=== PATIENT | male | born 1990 | race Caucasian/White ===

== ENCOUNTER 2017-09-01 21:58 | Emergency (ER) | payer MEDICAID ==
[2017-09-01 22:16] VITALS: BP 123/68
--- NOTE | 2017-09-01 22:22 | EDM.PDOC ---
ED HPI GENERAL MEDICAL PROBLEM - General Chief Complaint: Skin Complaint Stated Complaint: RASH ALL OVER Time Seen by Provider: 09/01/17 22:05 Source of Information: Reports: Patient History Limitations: Reports: No Limitations - History of Present Illness INITIAL COMMENTS - FREE TEXT/NARRATIVE: 27 yo male here with ? poison joann over much of his body. Is very itchy. Onset: Today Onset Date: 09/01/17 Duration: Hour(s):, Getting Worse Location: Reports: Generalized Quality: Reports: Other (itchy) Severity: Moderate Improves with: Reports: None Worsens with: Reports: Other (time) Context: Reports: Other (exposed to poison joann) Associated Symptoms: Reports: No Other Symptoms Treatments WEIGHTER: Reports: Other (see below) (none) - Related Data Allergies Allergy/AdvReac Type Severity Reaction Status Date / Time No Known Allergies Allergy Verified 09/01/17 22:05 Home Meds: Home Meds NK [No Known Home Meds] 09/01/17 [History] Past Medical History HEENT History: Reports: Other (See Below) Other HEENT History: laceration chin Dermatologic History: Reports: Other (See Below) Other Dermatologic History: laceration chin ED ROS GENERAL - Review of Systems Review Of Systems: See Below Constitutional: Reports: No Symptoms HEENT: Reports: No Symptoms Respiratory: Reports: No Symptoms Cardiovascular: Reports: No Symptoms GI/Abdominal: Reports: No Symptoms : Reports: No Symptoms Musculoskeletal: Reports: No Symptoms Skin: Reports: Pruritis, Rash Neurological: Reports: No Symptoms ED EXAM, SKIN/RASH Exam: See Below Exam Limited By: No Limitations General Appearance: Alert, WD/WN, No Apparent Distress Eye Exam: Bilateral Eye: Normal Inspection Ears: Normal External Exam, Normal Canal, Hearing Grossly Normal, Normal TMs Nose: Normal Inspection, Normal Mucosa Throat/Mouth: Normal Inspection, Normal Lips, Normal Oropharynx, Normal Voice, No Airway Compromise Head: Atraumatic, Normocephalic Neck: Normal Inspection Respiratory/Chest: No Respiratory Distress, Normal Breath Sounds, No Accessory Muscle Use Cardiovascular: Regular Rate, Rhythm Neurological: Alert, Oriented, CN II-XII Intact, Normal Cognition, No Motor/ Sensory Deficits Psychiatric: Normal Affect, Normal Mood Skin: Warm, Dry, Intact, Rash Location, Skin: Generalized Characteristics: Maculopapular, Vesicular, Erythematous Associated features: Induration, Inflammation, Weeping Course - Vital Signs Last Recorded V/S: Last Vital Signs Temp 36.0 C 09/01/17 22:09 Pulse 63 09/01/17 22:09 Resp 14 09/01/17 22:09 BP 123/68 09/01/17 22:09 Pulse Ox 96 09/01/17 22:09 Departure - Departure Time of Disposition: 22:22 Disposition: Home, Self-Care 01 Condition: Good Clinical Impression: Contact dermatitis Qualifiers: Contact dermatitis type: allergic Contact dermatitis trigger: non-food plants Qualified Code(s): L23.7 - Allergic contact dermatitis due to plants, except food - Discharge Information Referrals: PCP,None [Primary Care Provider] -
== END 2017-09-01 22:34 | disposition home or self-care (01) ==
LOC: JP.ED 21:58
DX: L23.7 Allergic contact dermatitis due to plants, except food (principal)
CPT/HCPCS: 99283

== ENCOUNTER 2018-08-27 06:51 | Day surgery (SDC) | payer MEDICAID ==
[2018-08-27] MEDS ORDERED: Propofol 200 MG/20 ML SDV ONE (07:24)
[2018-08-27] MEDS ORDERED: fentaNYL 100 MCG/2 ML SDV ONE ×2 (07:24→09:32)
[2018-08-27] MEDS ORDERED: Midazolam 1 MG/ML 2 ML SDV ONE (07:24)
[2018-08-27] MEDS ORDERED: Dexamethasone 4 MG/ML SDV ONE (07:24)
[2018-08-27] MEDS ORDERED: Ondansetron 4 MG/2 ML SDV ONE (07:24)
[2018-08-27] MEDS: Lactated Ringers 1,000 ML IV SCH (07:28)
[2018-08-27] MEDS: Nozin Nasal Sanitizer NASBOTH ONE (07:29)
[2018-08-27] MEDS ORDERED: ceFAZolin 1 GM Vial ONE (08:49)
[2018-08-27] MEDS: Bupivacaine 0.25% 10 ML SDV ONE (09:18)
[2018-08-27] MEDS ORDERED: Lactated Ringers 1,000 ML ONE (09:39)
[2018-08-27] MEDS: Morphine 2 MG/ML Syringe IVPUSH ONE (10:03)
[2018-08-27] MEDS ORDERED: Ketorolac 30 MG/ML SDV IVPUSH ONE (10:29)
[2018-08-27] MEDS ORDERED: Ketorolac 30 MG/ML SDV ONE (10:34)
[2018-08-27] MEDS: Acetaminophen/oxyCODONE 325-5 MG Tab PO PRN (11:16)
[2018-08-27 11:51] VITALS: BP 94/60
--- NOTE | 2018-08-27 14:46 | OR ---
DATE OF PROCEDURE: 08/27/2018 PREOPERATIVE DIAGNOSES: Ganglion cyst, left knee, possible meniscus tear. POSTOPERATIVE DIAGNOSES: 1. Ganglion cyst, left knee. 2. Meniscal capsular separation, medial meniscus. 3. Hypermobile lateral meniscus with small posterior horn root tear. 4. Chondromalacia femoral trochlea. PROCEDURES: 1. Arthroscopy of left knee, decompression of ganglion cyst. 2. Repair of medial meniscus. 3. Repair of lateral meniscus. 4. Minor chondroplasty, trochlear groove. ANESTHESIA: General. INDICATIONS: Aguila is a 28-year-old male who has had difficulty with his left knee for the past several years. He initially sustained an injury to the knee while serving in the . This was a hyperextension-type injury. He has had difficulty with it since that time. Symptoms have been worse recently with intermittent locking and popping. He has had a couple of episodes of locking with inability to bear weight, which can take several hours to resolve. Examination reveals no significant instability of the ACL or PCL. MRI shows a small ganglion cyst in the posteromedial aspect of the knee with no definitive meniscus tears. He now presents for decompression of the popliteal cyst and evaluation of meniscus for possible tear as well as possibility of a loose cartilaginous body or articular cartilage flap causing the locking. Risks, benefits, and potential complications of the procedure were discussed, and he agrees to proceed. DESCRIPTION OF PROCEDURE: After adequate anesthesia was obtained, the patient was placed supine with a tourniquet about the left upper thigh. Left leg was prepped and draped in a sterile fashion. Leg was exsanguinated and tourniquet inflated to 300 mmHg. Examination under anesthesia revealed no significant laxity on Bushra's, anterior or posterior drawer, and negative pivot shift. Standard anterior medial and lateral portals were established. The scope was introduced. The patellofemoral joint was inspected. This revealed intact articular cartilage on the patella. A small fissure was present in the trochlear groove in its base with grade 2 and early grade 3 changes. Medial compartment revealed no articular cartilage damage. Initial observation of the medial meniscus showed no obvious irregularities. The probe was then introduced and it showed attachment on the dorsal surface; however, the tibial articular surface showed a rent along the posterior portion from the junction of the midbody to the posterior horn. This allowed the meniscus to slide beneath the medial femoral condyle. It was consistent with meniscal capsular separation with partial healing on the superior surface. It was felt that this was mobile enough to potentially cause entrapment and pain. Further inspection revealed anterior and posterior cruciate ligaments to be intact within the notch. Lateral compartment revealed intact articular cartilage in the femoral condyle and tibial plateau. The lateral meniscus showed some fraying at the attachment of the posterior root with a very large popliteal hiatus and thin connection in the posterior horn over to the meniscal root resulting in hypermobile lateral meniscus, which could be significantly displaced into the joint and under the femoral condyle. Due to the intraoperative findings, it was thought that the lateral meniscus was most likely the source of the popping and locking as it could be displaced beneath the femoral condyle with significant distance. There was also the possibility that the mobility of the medial meniscus would cause pain and the possibility of further catching and fraying of the meniscus. Decision was made to proceed with repair of both menisci. Attention was turned to the medial compartment first, where the hook probe and shaver were used to roughen the undersurface of the meniscocapsular junction leaving the superior surface intact. Two Mitek meniscal anchors were then utilized placing horizontal mattress sutures. These were tightened, pulling the meniscus back against the capsule. This was then probed and was found to be quite stable. During placement of 1 of the anchors, the anchor misfired and was removed, and then replaced. Attention was then turned to the lateral compartment. The scope was initially placed through the medial portal and working through the lateral portal. Shaver was used to debride the frayed portion of the meniscal root and slightly roughen the junction of the posterior horn of the meniscus to the capsule. A Mitek anchor was then placed at this location and tied down against the capsule. This provided excellent stability of this portion of the meniscus. The remainder was probed and found to still be somewhat mobile more peripherally and decision was made to place the second anchor on the other side of the popliteal hiatus. Again, this area was roughened and a second anchor was then placed in horizontal mattress fashion. This was then tightened and cut. Probing again revealed very good stability of the meniscus. Shaver was used to lightly debride the trochlear groove removing the slight prominence along the edge of the fissure. No other abnormalities were identified. Knee was drained. Scope was withdrawn. Port sites were closed in a standard fashion and infiltrated with Marcaine. Sterile dressing was then applied. The patient was placed in a hinged knee brace locked, set to prevent more than 70 degrees of flexion. He tolerated the procedure well. There were no complications. Kvng Smiley MD /[id number] MTDD
== END 2018-08-27 12:48 | disposition home or self-care (01) ==
LOC: JP.SDS 06:51
PROVIDERS: ATTEND Specialist
DX: S83.282A Other tear of lateral meniscus, current injury, left knee, initial encounter (principal); S83.242A Other tear of medial meniscus, current injury, left knee, initial encounter; M67.462 Ganglion, left knee; X50.9XXA Other and unspecified overexertion or strenuous movements or postures, initial encounter
CPT/HCPCS: 29883; 36415; 80048; 85027; A9270; C1713; J0690; J1100; J2250; J2270; J2405; J2704; J3010; J3490; J7120

== ENCOUNTER 2018-12-13 23:41 | Emergency (ER) | payer MEDICAID ==
[2018-12-14 00:05] VITALS: BP 128/80; PULSE 62
--- NOTE | 2018-12-14 00:22 | EDM.PDOC ---
ED HPI GENERAL MEDICAL PROBLEM - General Chief Complaint: Bite:Animal, Insect Stated Complaint: WOOD TICK BITE Time Seen by Provider: 12/14/18 00:11 Source of Information: Reports: Patient, RN Notes Reviewed History Limitations: Reports: No Limitations - History of Present Illness INITIAL COMMENTS - FREE TEXT/NARRATIVE: 28-year-old gentleman presents emergency department today with a deer tick attached to his right shoulder, he found this yesterday - Related Data Allergies Allergy/AdvReac Type Severity Reaction Status Date / Time No Known Allergies Allergy Verified 12/14/18 00:04 Home Meds: Home Meds NK [No Known Home Meds] 12/11/18 [History] Past Medical History HEENT History: Reports: Other (See Below) Other HEENT History: laceration chin Cardiovascular History: Reports: None Respiratory History: Reports: None Gastrointestinal History: Reports: None Genitourinary History: Reports: None Musculoskeletal History: Reports: Other (See Below) Other Musculoskeletal History: L knee pain/bakers cyst and some pain in right pain Neurological History: Reports: Migraines Psychiatric History: Reports: None Endocrine/Metabolic History: Reports: None Hematologic History: Reports: None Immunologic History: Reports: None Oncologic (Cancer) History: Reports: None Dermatologic History: Reports: Other (See Below) Other Dermatologic History: laceration chin - Infectious Disease History Infectious Disease History: Reports: Chicken Pox, Shingles - Past Surgical History HEENT Surgical History: Reports: Oral Surgery Neurological Surgical History: Reports: None Musculoskeletal Surgical History: Reports: None, Arthroscopic Knee, Other (See Below) Other Musculoskeletal Surgeries/Procedures:: left knee scope 08/27/18 Dermatological Surgical History: Reports: None Social & Family History - Tobacco Use Smoking Status *Q: Never Smoker - Caffeine Use Caffeine Use: Reports: Coffee, Energy Drinks, Soda - Recreational Drug Use Recreational Drug Use: No ED ROS GENERAL - Review of Systems Review Of Systems: See Below Constitutional: Reports: No Symptoms Skin: Reports: Wound ED EXAM, ANIMAL BITE - Physical Exam Exam: See Below Text/Narrative:: Does have a wound about the size of a dime there is no erythema migrans present I did take a 15 blade and removed portion of the tick Exam Limited By: No Limitations General Appearance: Alert, WD/WN, No Apparent Distress Course - Vital Signs Last Recorded V/S: Last Vital Signs Temp 97.9 F 12/14/18 00:09 Pulse 62 12/14/18 00:09 Resp 16 12/14/18 00:09 BP 128/80 12/14/18 00:09 Pulse Ox 98 12/14/18 00:09 Departure - Departure Time of Disposition: 00:21 Disposition: Home, Self-Care 01 Condition: Fair Clinical Impression: Tick bite of right upper arm Qualifiers: Encounter type: initial encounter Qualified Code(s): S40.861A - Insect bite ( nonvenomous) of right upper arm, initial encounter; W57.XXXA - Bitten or stung by nonvenomous insect and other nonvenomous arthropods, initial encounter - Discharge Information Instructions: Tick Bite Information, Adult, Havz-at-Uhyr, Lyme Disease Referrals: PCP,None [Primary Care Provider] - Additional Instructions: Take doxycycline 200 mg times one, watch for signs and symptoms of tickborne illness, Please followup with your primary care provider in 3-5 days if not better, please call return to the emergency department with worsening of symptoms. - Assessment/Plan Plan: Assessment Acuity = acute Site and laterality = deer tick exposure Etiology = Ixodes scapularis Manifestations = none Location of injury = Home Lab values = none Plan Treated empirically doxycycline 200 mg 1 follow-up primary care as needed This note was dictated using [employer] voice recognition software please call with any questions on syntax or grammar.
== END 2018-12-14 00:28 | disposition home or self-care (01) ==
LOC: JP.ED 23:41
DX: S40.861A Insect bite (nonvenomous) of right upper arm, initial encounter (principal); W57.XXXA Bitten or stung by nonvenomous insect and other nonvenomous arthropods, initial encounter
CPT/HCPCS: 99282

== ENCOUNTER 2019-04-19 06:56 | Emergency (ER) | payer OTHER, MEDICAID ==
[2019-04-19 07:13] VITALS: BP 135/90; PULSE 68
[2019-04-19] MEDS ORDERED: Ibuprofen 800 MG Tab PO ONE (07:17)
--- NOTE | 2019-04-19 07:19 | EDM.PDOC ---
ED HPI GENERAL MEDICAL PROBLEM - General Chief Complaint: ENT Problem Stated Complaint: EAR PAIN IN RIGHT EAR Time Seen by Provider: 04/19/19 07:21 Source of Information: Reports: Patient History Limitations: Reports: No Limitations - History of Present Illness INITIAL COMMENTS - FREE TEXT/NARRATIVE: pt arrived with a history of sudden onset of rt ear pain during the nite. he has not taken anything for pain. Onset: Today, Other ( started during the nite.) Duration: Hour(s): Location: Reports: Face Associated Symptoms: Reports: No Other Symptoms right ear Pain Score (Numeric/FACES): 7 - Related Data Allergies Allergy/AdvReac Type Severity Reaction Status Date / Time No Known Allergies Allergy Verified 04/19/19 07:11 Home Meds: Home Meds NK [No Known Home Meds] 12/11/18 [History] Past Medical History HEENT History: Reports: Other (See Below) Other HEENT History: laceration chin Cardiovascular History: Reports: None Respiratory History: Reports: None Gastrointestinal History: Reports: None Genitourinary History: Reports: None Musculoskeletal History: Reports: Other (See Below) Other Musculoskeletal History: L knee pain/bakers cyst and some pain in right pain Neurological History: Reports: Migraines Psychiatric History: Reports: None Endocrine/Metabolic History: Reports: None Hematologic History: Reports: None Immunologic History: Reports: None Oncologic (Cancer) History: Reports: None Dermatologic History: Reports: Other (See Below) Other Dermatologic History: laceration chin - Infectious Disease History Infectious Disease History: Reports: Chicken Pox, Shingles - Past Surgical History Musculoskeletal Surgical History: Reports: None, Arthroscopic Knee, Other (See Below) Social & Family History - Tobacco Use Smoking Status *Q: Never Smoker - Caffeine Use Caffeine Use: Reports: Coffee, Energy Drinks, Soda - Recreational Drug Use Recreational Drug Use: No ED ROS ENT - Review of Systems Review Of Systems: See Below Constitutional: Reports: Other ( acute ear pain. ) HEENT: Reports: Ear Pain Respiratory: Reports: No Symptoms Cardiovascular: Reports: No Symptoms Endocrine: Reports: No Symptoms GI/Abdominal: Reports: No Symptoms : Reports: No Symptoms Musculoskeletal: Reports: No Symptoms Skin: Reports: No Symptoms Neurological: Reports: No Symptoms ED EXAM, ENT - Physical Exam Exam: See Below Text/Narrative:: pt arrived with acute pain in the rt ear. There is no drainage from the ear and no history of injury. Exam Limited By: No Limitations General Appearance: Alert, Anxious, Mild Distress Ears: Other (left ear is normal, rt ear has slight bulginging and the drum is red. ) Nose: Normal Inspection Mouth/Throat: Normal Inspection Head: Atraumatic Neck: Lymphadenopathy (R), Lymphadenopathy (L) Respiratory/Chest: No Respiratory Distress Cardiovascular: Regular Rate, Rhythm GI/Abdominal: Soft, Non-Tender (Male) Exam: Deferred Rectal (Males) Exam: Deferred Back: Normal Inspection Extremities: Normal Inspection Neurological: Alert, Oriented, Normal Cognition Course - Vital Signs Last Recorded V/S: Last Vital Signs Temp 35.5 C L 04/19/19 07:12 Pulse 68 04/19/19 07:12 Resp 12 04/19/19 07:12 BP 135/90 04/19/19 07:12 Pulse Ox 99 04/19/19 07:12 - Orders/Labs/Meds Meds: Medications Discontinued Medications Generic Name Dose Route Start Last Admin Trade Name Ladarius PRN Reason Stop Dose Admin Ibuprofen 800 mg 04/19/19 07:17 04/19/19 07:21 Motrin PO 04/19/19 07:18 800 mg ONETIME ONE Administration Departure - Departure Time of Disposition: 07:18 Disposition: Home, Self-Care 01 Condition: Fair Clinical Impression: Right otitis media - Discharge Information Instructions: Otitis Media, Adult, [id number] Referrals: PCP,None [Primary Care Provider] - Forms: ED Department Discharge Care Plan Goals: motrin and tylenol for pain, amoxicillin 500mg tid for 10 days, If not improving recheck. Sepsis Event Note - Evaluation Sepsis Screening Result: No Definite Risk - Focused Exam Date Exam was Performed: 04/21/19 Time Exam was Performed: 11:00
== END 2019-04-19 07:41 | disposition home or self-care (01) ==
LOC: JP.ED 06:56
DX: H66.91 Otitis media, unspecified, right ear (principal)
CPT/HCPCS: 99282; A9270

== ENCOUNTER 2020-03-02 08:24 | Day surgery (SDC) | payer OTHER, MEDICAID ==
[~2020-03-02 08:24] MED LIST: Lactated Ringers 1,000 ML IV SCH; Nozin Nasal Sanitizer NASBOTH ONE; ceFAZolin 2 GM in Premix Bag 1 BAG IV ONE
[2020-03-02] MEDS ORDERED: Bupivacaine 0.5% 30 ML SDV ONE (08:50)
[2020-03-02] MEDS ORDERED: Midazolam 1 MG/ML 2 ML SDV ONE (09:12)
[2020-03-02] MEDS ORDERED: fentaNYL 250 MCG/5 ML SDV ONE (09:12)
[2020-03-02] MEDS ORDERED: Propofol 200 MG/20 ML SDV ONE (09:12)
[2020-03-02] MEDS ORDERED: Ketorolac 60 MG/2 ML SDV ONE (10:48)
[2020-03-02] MEDS ORDERED: fentaNYL 100 MCG/2 ML SDV ONE (10:49)
[2020-03-02] MEDS ORDERED: Acetaminophen/HYDROcodone 325-5 MG Tab PO ONE (12:15)
[2020-03-02 12:51] VITALS: BP 105/72; PULSE 46
--- NOTE | 2020-03-08 20:16 | OR ---
DATE OF PROCEDURE: 03/02/2020 SURGEON: Kvng Smiley MD PREOPERATIVE DIAGNOSIS: Hypermobile lateral meniscus, left knee. POSTOPERATIVE DIAGNOSIS: Hypermobile lateral meniscus, left knee with previous failed repair. PROCEDURE: Arthroscopy left knee with repair of lateral meniscus to joint capsule. CALENDER LET OFF OPERATOR: JENNIFER Mckeon. ANESTHESIA: General. INDICATIONS: Aguila is a 29-year-old gentleman with a history of left knee pain with popping and sensation of instability. He had previously undergone fixation of a hypermobile lateral meniscus. He did well for approximately 1 year and then had a minor injury with recurrent symptoms. He now presents for 2nd attempt at fixation of meniscus. Previous fixation was done around the popliteal tendon with a single stitch on either side of the popliteal hiatus. Plan at this point is for additional and more robust fixation. Risks, benefits, potential complications of the procedure were discussed. DESCRIPTION OF PROCEDURE: After adequate anesthesia was obtained, patient placed supine with a tourniquet about the left upper thigh. Left leg was prepped and draped in a sterile fashion. Leg was examined under anesthesia with no evidence of laxity in ACL, MCL, LCL, or PCL. Leg was exsanguinated and tourniquet inflated to 300 mmHg pressure. The previous incision was utilized and anterior, medial and lateral portals were established. The scope was introduced. Examination of the joint revealed no evidence of articular cartilage damage in the patellofemoral joint. Medial compartment showed intact articular cartilage and previous minor mobility of the medial meniscus was probed and this was found to be very stable with intact repair. Intercondylar notch revealed intact ACL and PCL. Lateral compartment showed an intact meniscus, however, probing this revealed that it could be displaced into the joint anterior to the femoral condyle and that the previous sutures were identified. One was still intact in the meniscus but had pulled through the capsule. The other was intact in the capsule and had pulled through the meniscus. These were debrided with a shaver. The shaver was then used to roughen the capsule medial and lateral to the popliteal tendon as well as to roughen the periphery of the meniscus itself. Using Mitek meniscal anchors, 2 anchors were placed adjacent to the meniscal root bringing up to, but not through the popliteal tendon. 4 additional anchors were then placed lateral to the popliteal hiatus coming around to the junction of the posterior horn and midbody. The sutures were cinched down and cut and this provided a very stable and apparently robust fixation. The knee was drained. Scope was withdrawn. Port sites were closed in a standard fashion, infiltrated with Marcaine and a sterile dressing was applied. The patient tolerated the procedure very well. There were no complications, taken from the operating room in stable condition. Kvng Smiley MD /[id number]
== END 2020-03-02 12:55 | disposition home or self-care (01) ==
LOC: JP.SDS 08:24
PROVIDERS: ATTEND Specialist
DX: M23.301 Other meniscus derangements, unspecified lateral meniscus, left knee (principal)
CPT/HCPCS: 29883; 36415; 80053; 85027; A9270; C1713; J0690; J1885; J2250; J2704; J3010; J3490; J7060; J7120

== ENCOUNTER 2021-02-06 07:29 | Day surgery (SDC) | payer OTHER, MEDICAID ==
[~2021-02-06 07:29] MED LIST changes: +Bupivacaine 0.5% 50 ML MDV ONE; -Lactated Ringers 1,000 ML IV SCH; -Nozin Nasal Sanitizer NASBOTH ONE; -ceFAZolin 2 GM in Premix Bag 1 BAG IV ONE
[2021-02-06] MEDS ORDERED: Propofol 200 MG/20 ML SDV ONE (07:30)
[2021-02-06] MEDS ORDERED: Midazolam 1 MG/ML 2 ML SDV ONE (07:30)
[2021-02-06] MEDS ORDERED: fentaNYL 100 MCG/2 ML SDV ONE ×2 (07:30→07:55)
[2021-02-06] MEDS ORDERED: Ondansetron 4 MG/2 ML SDV ONE (07:32)
[2021-02-06] MEDS ORDERED: Dexamethasone 4 MG/ML SDV ONE (07:32)
[2021-02-06] MEDS ORDERED: Succinylcholine 200 MG/10 ML MDV ONE (07:32)
[2021-02-06] MEDS ORDERED: Rocuronium 50 MG/5 ML Vial ONE (07:32)
[2021-02-06] MEDS ORDERED: Ketorolac 30 MG/ML SDV ONE (07:55)
[2021-02-06] MEDS ORDERED: Nozin Nasal Sanitizer NASBOTH ONE (08:00)
[2021-02-06] MEDS ORDERED: Lactated Ringers 1,000 ML IV SCH (08:00)
[2021-02-06] MEDS ORDERED: ceFAZolin 1 GM in Premix Bag 1 BAG IV ONE (08:30)
[2021-02-06] MEDS ORDERED: Morphine 2 MG/ML SYRINGE IVPUSH ONE (11:57)
[2021-02-06] MEDS ORDERED: Acetaminophen/oxyCODONE 325-5 MG Tab PO PRN ×2 (12:36→12:40)
[2021-02-06 13:49] VITALS: BP 146/76; PULSE 75
--- NOTE | 2021-02-08 20:23 | OR ---
DATE OF PROCEDURE: 02/06/2021 SURGEON: Kvng Smiley MD PREOPERATIVE DIAGNOSIS: Hypermobile lateral meniscus, possible lateral meniscus tear. POSTOPERATIVE DIAGNOSIS: Hypermobile lateral meniscus. PROCEDURE: Arthroscopic repair, lateral meniscus. OIL BURNER INSTALLER: JENNIFER Mckeon ANESTHESIA: General. INDICATIONS: Aguila is a 30-year-old gentleman with a history of recurrent difficulty with left knee pain, popping, catching and giving way. He has a history of hypermobile lateral meniscus and has undergone previous repair. He did well for a period of time until he began experienced increasing pain and sensation of instability once again. His examination is consistent with recurrence of the hypermobile lateral meniscus. He now presents for attempt at stabilization once again. I had several discussions of varying techniques available for this including all inside technique or inside-out technique with open incision posterolaterally. He is aware of the anatomy of the condition including the popliteal hiatus and the normal mobility of the lateral meniscus. Risks, benefits, and potential complications were discussed. DESCRIPTION OF PROCEDURE: After adequate anesthesia was obtained, the patient was placed supine with a tourniquet about the left upper thigh. Left leg was prepped and draped in a sterile fashion. Examination of the knee under anesthesia revealed no evidence of ligamentous laxity on anterior drawer or Bushra's. He does have some laxity with varus stress, which is similar to his right knee. Leg was exsanguinated and tourniquet inflated to 250 mmHg pressure. The standard anterior portals were established. Knee was inspected. This revealed no evidence of articular cartilage damage in the patellofemoral joint. Medial compartment showed intact articular cartilage on the femur and tibia and medial meniscus was intact. This was probed and found to be stable. This had been somewhat hypermobile previously and undergone repair and this was intact. Intercondylar notch revealed intact ACL and PCL. Lateral compartment revealed intact articular cartilage with minimal scuffing. The meniscus itself was intact without clarence tear. However, probing revealed significant mobility and allowed the posterior horn to be displaced anterior to the condyle. Previous sutures were noted in the meniscus which had pulled through the capsule posteriorly. The anterior portion around to the mid body and just slightly onto the posterior horn showed attachment to the capsule which was intact. However, from slightly lateral to the popliteal hiatus over to the meniscal root was mobile. Portions of the previous sutures which could be removed were grasped with a grasper and removed and also debrided with a shaver. The area of the capsule adjacent to the tendon was lightly debrided and roughened with a shaver as well as with a 90-degree rasp in order to stimulate the surface for repair. Multiple Mitek Omnispan sutures were then placed in a double vertical stack technique placing 2 sutures lateral to the popliteal hiatus on the superior surface with one suture through the meniscus and the other limb of the Omnispan into the capsule. These were both tighten down with excellent approximation. Two additional sutures were then placed on the inferior surface of the meniscus through the meniscus and the capsule in-line vertically with the superior sutures. These also provided excellent approximation against the capsule. Additional sutures were then placed medial to the tendon with special care taken to avoid attachment to the tendon itself as well as preventing overpenetration into the popliteal space. Two attempts at placement of anchors that did fail secondary to inadequate tissue fixation of the anchor and this was removed. Additional anchors were placed again in a vertical double stack technique with 1 suture along the superior edge and a 2nd suture on the tibial side for a total of 10 sutures in the posterior horn. This provided a very stable repair. Tourniquet was released prior to removing the scope and bleeding was noted along the capsular edge. Scope was withdrawn. Port sites were closed with 3-0 Monocryl and Steri-Strips. Wounds were infiltrated with Marcaine, and a sterile dressing was applied. The patient tolerated the procedure very well. There were no complications. He was taken from the operating room in a stable condition and placed into a hinged knee brace locked at 0-40 degrees of flexion. Kvng Smiley MD /[id number]
== END 2021-02-06 13:45 | disposition home or self-care (01) ==
LOC: JP.SDS 07:29
PROVIDERS: ATTEND Specialist
DX: M23.301 Other meniscus derangements, unspecified lateral meniscus, left knee (principal)
CPT/HCPCS: 29882; 36415; 80048; 85027; A9270; C1713; J0690; J1100; J1885; J2250; J2270; J2405; J2704; J3010; J3490; J7120; J0330

== ENCOUNTER 2021-08-09 05:18 | Day surgery (SDC) | payer MEDICAID ==
[2021-08-09 06:15] LABS: ESTIMATED GFR 75 mL/min (>60)
[2021-08-09] MEDS ORDERED: Bupivacaine 0.5% 50 ML MDV ONE (06:51)
[2021-08-09] MEDS ORDERED: Lactated Ringers 1,000 ML IV SCH (07:00)
[2021-08-09] MEDS ORDERED: Nozin Nasal Sanitizer NASBOTH ONE (07:00)
[2021-08-09] MEDS ORDERED: fentaNYL 100 MCG/2 ML SDV ONE ×4 (07:12→09:27)
[2021-08-09] MEDS ORDERED: Midazolam 1 MG/ML 2 ML SDV ONE ×3 (07:12→08:49)
[2021-08-09] MEDS ORDERED: Propofol 200 MG/20 ML SDV ONE ×3 (07:12→09:14)
[2021-08-09] MEDS ORDERED: Scopolamine 1.5 MG Transdermal Patch TOP ONE (07:25)
[2021-08-09] MEDS ORDERED: ceFAZolin 2 GM in Premix Bag 1 BAG IV ONE (07:30)
[2021-08-09] MEDS ORDERED: Bupivacaine 0.5% 50 ML MDV INJECT ONE (08:41)
[2021-08-09] MEDS ORDERED: Ondansetron 4 MG/2 ML SDV ONE (09:31)
[2021-08-09] MEDS ORDERED: Dexamethasone 4 MG/ML SDV ONE (09:31)
[2021-08-09] MEDS ORDERED: Ketorolac 30 MG/ML SDV ONE (09:31)
[2021-08-09] MEDS ORDERED: oxyCODONE 5 MG Tab PO PRN (10:02)
[2021-08-09 13:02] VITALS: BP 111/63; PULSE 83
== END 2021-08-09 16:22 | disposition home or self-care (01) ==
LOC: JP.SDS 05:18
PROVIDERS: ATTEND Specialist
DX: M23.262 Derangement of other lateral meniscus due to old tear or injury, left knee (principal); Z87.891 Personal history of nicotine dependence
CPT/HCPCS: 36415; 73560-26-LT; 73560-LT; 80053; 85027; 97110-GP; 97116-GP; 97161-GP; 97535-GP; A9270-GY; C1713; C1776; J0690; J1100; J1885; J2250; J2405; J2704; J3010; J3490; J7120

== ENCOUNTER 2021-11-13 07:32 | Day surgery (SDC) | payer BC, MEDICAID ==
[2021-11-13] MEDS ORDERED: Nozin Nasal Sanitizer NASBOTH ONE (08:00)
[2021-11-13] MEDS ORDERED: Lactated Ringers 1,000 ML IV SCH (08:00)
[2021-11-13 08:14] LABS: ESTIMATED GFR 83 mL/min (>60)
[2021-11-13] MEDS ORDERED: ceFAZolin 2 GM in Sodium Chloride 0.9% 50 ML IV ONE (08:30)
[2021-11-13] MEDS ORDERED: Dexamethasone 4 MG/ML SDV ONE (08:34)
[2021-11-13] MEDS ORDERED: Ondansetron 4 MG/2 ML SDV ONE (08:34)
[2021-11-13] MEDS ORDERED: Midazolam 1 MG/ML 2 ML SDV ONE (08:34)
[2021-11-13] MEDS ORDERED: Propofol 200 MG/20 ML SDV ONE (08:34)
[2021-11-13] MEDS ORDERED: Bupivacaine 0.5% 30 ML SDV ONE (08:34)
[2021-11-13] MEDS ORDERED: fentaNYL 100 MCG/2 ML SDV ONE ×2 (08:34→09:42)
[2021-11-13] MEDS ORDERED: Ketorolac 30 MG/ML SDV ONE (08:34)
[2021-11-13] MEDS ORDERED: Scopolamine 1.5 MG Transdermal Patch ONE (08:44)
[2021-11-13] MEDS ORDERED: Acetaminophen/oxyCODONE 325-5 MG Tab PO ONE (10:45)
[2021-11-13 15:23] VITALS: BP 100/52; PULSE 48
== END 2021-11-13 16:35 | disposition home or self-care (01) ==
LOC: JP.SDS 07:32
PROVIDERS: ATTEND Specialist
DX: M25.862 Other specified joint disorders, left knee (principal); K21.9 Gastro-esophageal reflux disease without esophagitis; Z79.899 Other long term (current) drug therapy; Z91.018 Allergy to other foods
CPT/HCPCS: 27599; 36415; 80053; 85027; A9270; J0690; J1100; J1885; J2250; J2405; J2704; J3010; J3490; J7120

== ENCOUNTER 2023-03-20 12:46 | Emergency (ER) | payer MEDICAID ==
[2023-03-20] MEDS ORDERED: Sodium Chloride 0.9% 10 ML Syringe FLUSH PRN (14:33)
[2023-03-20 14:44] LABS: BASOPHILS PERCENT AUTO 0.3 % (0.1-1.3); EOSINOPHILS PERCENT AUTO 0.3 % (0.0-5.4); HEMATOCRIT 43.8 % (38.4-49.7); HEMOGLOBIN 15.4 g/dL (12.9-16.9); IMMATURE GRAN PERCENT AUTO 0.3 % (0.0-0.7); LYMPHOCYTES ABSOLUTE AUTO 1.56 K/uL (0.8-3.3); LYMPHOCYTES PERCENT AUTO 20.7 % (11.4-47.7); MEAN CORPUSCULAR HEMOGLOBIN 29.7 pg (31.6-35.5); MEAN CORPUSCULAR HGB CONC 35.2 g/dL (31.6-35.5); MEAN CORPUSCULAR VOLUME 84.4 fL (81.4-99.0); MONOCYTES PERCENT AUTO 5.3 % (3.3-12.6); NEUTROPHILS PERCENT AUTO 73.1 % (40.0-78.1); PLATELET COUNT,PLT 263 K/uL (130-375); RED BLOOD CELL COUNT 5.19 M/uL (4.14-5.76); WHITE BLOOD CELL COUNT,WBC 7.5 K/uL (3.2-11.0)
[2023-03-20 14:49] LABS: BASOPHILS ABSOLUTE AUTO 0.02 K/uL (0.00-0.10); EOSINOPHILS ABSOLUTE AUTO 0.02 K/uL (0.00-0.40); IMMATURE GRAN ABSOLUTE AUTO 0.02 K/uL (0.00-0.23)
[2023-03-20 14:54] VITALS: BP 134/84; PULSE 70
[2023-03-20] MEDS ORDERED: Sodium Chloride 0.9% 80 ML IV ONE (15:07)
[2023-03-20] MEDS ORDERED: Iopamidol 612 MG/ML 100 ML Bottle IV ONE (15:07)
[2023-03-20 15:20] LABS: A/G RATIO 1.5 (1.2-2.2); ALANINE AMINOTRANSFERASE,ALT 23 U/L (12-78); ALBUMIN 4.3 g/dL (3.4-5.0); ALKALINE PHOSPHATASE 58 U/L (46-116); ASPARTATE AMNIOTRANSFERASE,AST 19 U/L (15-37); BILIRUBIN TOTAL 1.9 mg/dL (0.2-1.0); BLOOD UREA NITROGEN,BUN 9 mg/dL (7-18); CALCIUM 9.1 mg/dL (8.5-10.1); CARBON DIOXIDE,CO2 32 mmol/L (21-32); CHLORIDE,CL 103 mmol/L (100-108); CREATININE 1.1 mg/dL (0.8-1.3); EST CRCL DRUG DOSING (CG) 108.95 mL/min; ESTIMATED GFR 91 mL/min (>60); GLUCOSE RANDOM 81 mg/dL (74-106); POTASSIUM,K 4.7 mmol/L (3.6-5.2); PROTEIN TOTAL,TP 7.1 g/dL (6.4-8.2); SODIUM,NA 142 mmol/L (140-148)
[2023-03-20 15:24] LABS: C-REACTIVE PROTEIN < 0.50 mg/dL (<0.50)
== END 2023-03-20 16:38 | disposition home or self-care (01) ==
LOC: JP.ED 12:46
DX: K57.90 Diverticulosis of intestine, part unspecified, without perforation or abscess without bleeding (principal); Z91.018 Allergy to other foods
CPT/HCPCS: 36415; 74177; 74177-26; 80053; 83605; 85025; 86140; 99283; 99284; J7050; Q9967